=== PATIENT | female | born 1980 ===

== ENCOUNTER 2019-03-11 11:29 | Emergency (ER) | payer MEDICAID ==
[2019-03-11] MEDS: IBUPROFEN 600 MG TAB PO (13:32)
[2019-03-11 13:51] LABS: ADD UMIC YES; UR ASCORBIC ACID 40 mg/dL (NEGATIVE); UR BACTERIA FEW /HPF (NONE SEEN); UR BILIRUBIN (Dip) NEGATIVE (NEGATIVE); UR BLOOD (Dip) NEGATIVE (NEGATIVE); UR CLARITY SLIGHTLY CLOUDY (CLEAR); UR COLOR YELLOW (YELLOW); UR GLUCOSE (Dip) NEGATIVE (NEGATIVE); UR KETONES (Dip) 1+ mg/dL (NEGATIVE); UR LEUKOCYTE ESTERASE (Dip) 1+ Leu/ul (NEGATIVE); UR MUCUS FEW /HPF (NONE SEEN); UR NITRITE (Dip) NEGATIVE (NEGATIVE); UR RBC 3 /HPF (0-5); UR SPECIFIC GRAVITY (Dip) 1.012 (1.003-1.030); UR SQUAMOUS EPITHELIAL CELL FEW /HPF (FEW); UR TOTAL PROTEIN (Dip) NEGATIVE (NEGATIVE); UR UROBILINOGEN (Dip) NEGATIVE (NEGATIVE); UR WBC 49 /HPF (0-5)
[2019-03-11 14:09] LABS: MONOTEST Positive (NEG)
[2019-03-11] MEDS: DEXAMETHASONE 10 MG/ML 1 ML INJ PO (14:48)
== END 2019-03-11 15:00 | disposition home or self-care (01) ==
LOC: FTE 11:29
DX: B27.90 Infectious mononucleosis, unspecified without complication (principal); N39.0 Urinary tract infection, site not specified
CPT/HCPCS: 36415; 81001; 81025; 86308; 87070; 87880; 99283